=== PATIENT | female | born 1975 ===

== ENCOUNTER 2024-05-10 14:02 | Emergency (ER) | payer OTHER, SELFPAY ==
[2024-05-10 14:05] VITALS: BP 137/55; PULSE 88; RESP 18; TEMP 36.4; O2SAT 99; BMI 37.1
--- NOTE | 2024-05-10 14:15 | ED.SKABFB ---
HPI - Skin/Abscess/Foreign Bdy General Chief complaint: Skin/Abscess/Foreign Body Stated complaint: rash behind L ear Time Seen by Provider: 05/10/24 14:13 Source: patient Mode of arrival: ambulatory Limitations: no limitations History of Present Illness ED Provider: PRECIOUS ALBRIGHT PA-C HPI narrative: 48 year old female presents to the ED today for evaluation of rash behind her left ear x2 days. She admits to a burning pain to this area x1 week prior to onset of rash. Pain is now extending down the left side of her neck. She has not noticed any other rash to her body. Admits to hx of chicken pox as a child. She not received shingles vaccines. No new soaps/ lotions/ detergents. No recent tick or insect bites. No hearing changes, ear pain, discharge from ear. No trauma. No hx diabetes. No new meds/ med changes. Related Data Previous Rx's ?Medication ?Instructions ?Recorded cetirizine 10 mg tablet (Zyrtec) 10 mg PO DAILY PRN itching #14 tabs 05/10/24 diphenhydramine HCl 25 mg capsule 25 mg PO TID PRN itching #14 caps 05/10/24 (Benadryl) valacyclovir 1 gram tablet 1,000 mg PO TID 7 days #21 tabs 05/10/24 (Valtrex) Allergies Allergy/AdvReac Type Severity Reaction Status Date / Time Sulfa (Sulfonamide Allergy Unknown Verified 05/10/24 14:09 Antibiotics) Review of Systems Review of Systems: Constitutional: No fever, chills, fatigue, night sweats, weight changes ENT/Mouth: No ear pain, hearing loss, nasal congestion, sinus pain, rhinorrhea, sore throat Eyes: No eye pain, swelling, redness, vision changes, discharge Cardio: No chest pain, palpitations, RIVERA, orthopnea, peripheral edema Pulm: No SOB, cough, sputum, wheezing, dyspnea, hemoptysis GI: No nausea, vomiting, hematemesis, abdominal pain, diarrhea, constipation, hematochezia, melena : No irregular bleeding, dysuria, frequency, urgency, hesitancy, hematuria, flank pain, urinary flow changes, urinary incontinence or retention MSK: No back pain, neck pain, joint pain, myalgias Skin: No lesions, +rash Neuro: No weakness, numbness, paresthesias, LOC, dizziness, headache Psych: No anxiety/panic, depression, SI/HI, AH/VH All other systems reviewed and are negative. [facility] Past Medical History Attestation statement: The following information was validated with the patient. Source: old records reviewed and nursing notes reviewed Social History Social History Advance Directives: No Advance Directives Information Provided: Yes Physical Exam Vital Signs: Vital Signs: Last Vital Signs Temp 97.6 F 05/10/24 14:39 Pulse 88 05/10/24 14:39 Resp 18 05/10/24 14:39 BP 137/55 L 05/10/24 14:39 Pulse Ox 99 05/10/24 14:39 BMI result Body Mass Index 37.1 vital signs stable General: Well appearing, in no acute distress. Skin: +multiple pustular lesions on erythematous base noted just posterior to left auricle. No obvious drainage. Some lesions appear to be crusted. Rash appears to be in the region of the C2 dermatome. Describing pain along this region as well. no warmth. no sloughing. spares mm, webbed spaces, palms/ soles. no target lesions. Head: Normocephalic, atraumatic. EENT: Hearing is intact b/l. Conjunctiva clear. PERRLA. EOM intact. Moist mucous membranes.? Left EAC WNL. No rash noted. Cardiac: Chest wall symmetric. RRR. Lungs: Normal respiratory effort without accessory muscle use. CTA bilaterally. Neuro: AOx3. Normal speech. Ambulating with steady gait. Medical Decision Making Medical Decision Making MDM Narrative: 48 year old female presents to the ED today for evaluation of rash behind her left ear x2 days. vital signs are stable. she is nontoxic appearing and in NAD. on exam, there are multiple pustular lesions on erythematous base noted just posterior to left auricle. No obvious drainage. Some lesions appear to be crusted. Rash appears to be in the region of the C2 dermatome. Describing pain along this region as well. no warmth. no sloughing. spares mm, webbed spaces, palms/ soles. no target lesions. Rash is consistent with herpes zoster. I have also considered contact/atopic/eczematous dermatitis, psoriasis although less likely. History and exam findings not consistent with lyme/tick bourne illness, scabies, HFM, dangerous etiologies of rash such as SJS/TEN, or secondary dangerous causes such as petechial rashes from thrombocytopenia or rickettsial infections.?Given the region, I am not concerned for mastoiditis, malignant otitis externa, otitis externa/ media. Plan at this time is to treat with valtrex and antihistamines, instruct to follow up with PCP. Differential Diagnosis Differential Diagnoses: The differential diagnosis associated with the presentation includes as above Admission/Observation not indicated. Prescription Management I considered prescription management with: Antiviral (valtrex) and Other (benadryl, zyrtec) Social Determinants Patient?s care significantly limited by Social Determinants of Health including: Other Social Determinant of Health Critical Care Time Critical Care Time Critical Care Time: No Discharge Plan Discharge Clinical Impression: Shingles Patient Disposition: Home, Self-Care Instructions: Shingles (ED) Additional Instructions: You were evaluated in the ED today for a rash behind your left ear. Your rash is consistent with shingles. See home care instructions. Treatment for this is with an anti-viral medication called Valtrex. Take 1 gram three times daily for a total of 7 days. You may take Benadryl every 8 hours or Zyrtec once daily as needed for itching. Taken tylenol/ motrin as needed for pain. It is likely that the rash will continue to spread to any areas that you are experiencing oain. Shingles is very contagious. Please avoid contact with all persons. Follow up with your primary doctor. Return with new or worsening symptoms. In the case of an emergency call 911. Prescriptions: New valacyclovir [Valtrex] 1 gram tablet 1,000 mg PO TID 7 Days Qty: 21 0RF diphenhydramine HCl [Benadryl] 25 mg capsule 25 mg PO TID PRN (Reason: itching) Qty: 14 0RF cetirizine [Zyrtec] 10 mg tablet 10 mg PO DAILY PRN (Reason: itching) Qty: 14 0RF Referrals: Physician,Unknown J [Primary Care Provider] - Stand Alone Forms: Work/School Release Interventions: ED Discharge Assessment Last Done: 05/10/24 14:39 Discharge Date/Time: 05/10/24 14:39 Print Language: [place]
[2024-05-10 14:39] VITALS: BP 137/55; PULSE 88; RESP 18; TEMP 36.4; O2SAT 99
== END 2024-05-10 14:39 | disposition home or self-care (01) ==
PROVIDERS: Emergency Provider Emergency Medicine Emergency Medical Services
DX: B02.9 Zoster without complications (principal); R21 Rash and other nonspecific skin eruption
CPT/HCPCS: 99282; 99283